=== PATIENT | male | born 1990 | race Caucasian/White ===

== ENCOUNTER 2023-10-07 08:51 | Inpatient (IN) | payer OTHER ==
[2023-10-07] VITALS (12 sets, daily range): BP systolic 88–142; BP diastolic 57–90; PULSE 66–123; RESP 16–19; TEMP 97.6–98.4; O2SAT 91–100
[~2023-10-07] VITALS: Ht 170.2 cm; Wt 87.1 kg
[2023-10-07] MEDS: LORazepam 2 MG/ML VIAL IVP ONE ×4 (09:35→11:07)
[2023-10-07] MEDS: NACL 0.9% 1,000 ML IV ONE (09:38)
[2023-10-07 09:50] LABS: BASOPHILS % (AUTO) 0.2 % (0.0-2.0); HEMATOCRIT 43.5 % (36-52); HEMOGLOBIN 15.3 g/dL (12.0-18.0); LYMPHOCYTES # (AUTO) 0.5 K/uL (2.0-11.5); LYMPHOCYTES % (AUTO) 7.2 % (20.5-51.1); MEAN CORPUSCULAR HEMOGLOBIN 33 pg (27-31); MEAN CORPUSCULAR HGB CONC 35 g/dL (33-37); MEAN CORPUSCULAR VOLUME 94.6 fL (80-94); MONOCYTES # (AUTO) 0.3 K/uL (0.8-1.0); MONOCYTES % (AUTO) 4.3 % (1.7-9.3); NEUTROPHILS # (AUTO) 6.2 K/uL (1.8-7.7); NEUTROPHILS % (AUTO) 88.3 % (42.2-75.2); PLATELET COUNT (AUTO) 151 K/uL (140-450)
[2023-10-07 10:02] LABS: ANION GAP 19.8 (8-16); CALCIUM 8.7 mg/dL (8.5-10.1); CARBON DIOXIDE 20.5 mmol/L (21-32); CREATININE 1.5 mg/dL (0.6-1.3); POTASSIUM 3.3 mmol/L (3.5-5.1)
[2023-10-07 10:11] LABS: ALANINE AMINOTRANSFERASE 96 U/L (12-78); ALBUMIN 4.3 g/dL (3.4-5.0); ALCOHOL, BLOOD < 3 mg/dL (<10); ALKALINE PHOSPHATASE 63 U/L (50-136); ASPARTATE AMINOTRANSFERASE 99 U/L (15-37); BILIRUBIN,DIRECT 0.4 mg/dL (0.0-0.3); TOTAL BILIRUBIN 1.4 mg/dL (0.0-1.0); TOTAL PROTEIN, SERUM 7.3 g/dL (6.4-8.2)
[2023-10-07 11:08] LABS: APPEARANCE,URINE CLEAR (CLEAR); BILIRUBIN,URINE NEGATIVE (NEGATIVE); BLOOD, URINE 1+ (NEGATIVE); COLOR,URINE YELLOW (YELLOW); LEUKOCYTE ESTERASE ,URINE NEGATIVE (NEGATIVE); NITRITE, URINE NEGATIVE (NEGATIVE); PROTEIN,URINE NEGATIVE (NEGATIVE); UGLUCOSE 1+ (NEGATIVE); UROBILINOGEN,URINE 0.2 EU/dL (0.2 - 1)
[2023-10-07 11:17] LABS: AMPHETAMINE, URINE NEGATIVE ng/ml (NEG <=1000); BARBITURATE, URINE NEGATIVE ng/ml (NEG <=200); BENZODIAZEPINE, URINE POSITIVE ng/mL (NEG <=200); CANNABINOID, URINE NEGATIVE ng/mL (NEG <=50); COCAINE, URINE NEGATIVE ng/mL (NEG <=300); OPIATE, URINE NEGATIVE ng/mL (NEG <=2000); PHENCYCLIDINE SCREEN,URINE NEGATIVE ng/mL (NEG <=25)
[2023-10-07 11:27] LABS: BACTERIA,URINE FEW /HPF (None Seen); RBC,URINE 0-5 /HPF (0-5); SQUAMOUS EPITHELIAL CELL,UR 0-3 (FEW) /LPF (0-3 (FEW)); WBC,URINE 0-5 /HPF (0-5)
[2023-10-07] MEDS: MIDAZOLAM 5 MG/5 ML VIAL IV ONE ×3 (11:35→14:16)
[2023-10-07] MEDS: DEXMEDETOMIDINE HCL 400 MCG in NACL 0.9% 96 ML IV SCH (13:00)
[2023-10-07] MEDS ORDERED: MIDAZOLAM 5 MG/5 ML VIAL ONE (13:28)
[2023-10-07] MEDS: DEXMEDETOMIDINE HCL 400 MCG in NACL 0.9% 96 ML IV PRN (14:15)
[2023-10-07] MEDS ORDERED: INTUBATION KIT MC ONE (14:33)
[2023-10-07] MEDS ORDERED: PROPOFOL 1000 MG/100 ML PREMIX 100 ML IV ONE (14:40)
[2023-10-07] MEDS: PROPOFOL 1000 MG/100 ML PREMIX 100 ML IV ONE (14:55)
[2023-10-07] MEDS: ROCURONIUM 50 MG/5 ML VIAL IV ONE (15:01)
[2023-10-07] MEDS: ETOMIDATE 20 MG/10 ML VIAL IVP ONE (15:03)
[2023-10-07] MEDS ORDERED: ALUMINUM HYD/MAG/SIMETHICONE 30 ML UDC PO PRN (17:00)
[2023-10-07] MEDS ORDERED: POTASSIUM CHLORIDE 10 MEQ TABER PO PRN (17:00)
[2023-10-07] MEDS ORDERED: DOCUSATE SODIUM 250 MG GELCAP PO PRN (17:00)
[2023-10-07] MEDS ORDERED: MAGNESIUM OXIDE 400 MG TAB PO PRN (17:00)
[2023-10-07] MEDS ORDERED: ONDANSETRON 4 MG/2 ML VIAL IVP PRN (17:00)
[2023-10-07] MEDS ORDERED: DEXT 5% /NACL 0.9% 1,000 ML IV SCH (17:00)
[2023-10-07] MEDS ORDERED: MAG SULF 2000 MG/WATER PREMIX 50 ML IV PRN (17:00)
[2023-10-07] MEDS ORDERED: bisacodyL 10 MG SUPP RC PRN (17:00)
[2023-10-07] MEDS ORDERED: HYDROcodone/APAP 5/325 MG 1 TAB TAB PO PRN ×2 (17:00)
[2023-10-07] MEDS ORDERED: guaiFENesin DM 200/20 MG-10 ML 10 ML UDC PO PRN (17:00)
[2023-10-07] MEDS ORDERED: SODIUM PHOSPHATE 118 ML ENEM RC PRN (17:00)
[2023-10-07] MEDS ORDERED: ACETAMINOPHEN 325 MG TAB PO PRN (17:00)
[2023-10-07] MEDS ORDERED: MORPHINE SULFATE 2 MG/ML SYR IVP PRN (17:00)
[2023-10-07] MEDS ORDERED: ACETAMINOPHEN 650 MG SUPP RC PRN (17:00)
[2023-10-07] MEDS ORDERED: CLONIDINE HYDROCHLORIDE 0.1 MG TAB PO PRN (17:00)
[2023-10-07] MEDS ORDERED: diphenhydrAMINE 50 MG/ML VIAL IVP PRN (17:00)
[2023-10-07] MEDS ORDERED: ZOLPIDEM 5 MG TAB PO PRN (17:00)
[2023-10-07 17:29] LABS: BLOOD GAS BASE EXCESS -2.5 mmol/L (-2.0-2.0); BLOOD GAS HCO3 20.5 mmol/L (22-26); BLOOD GAS O2 SAT% 99.7 % (92.0-98.5); BLOOD GAS PH 7.438 (7.35-7.45)
[2023-10-07] MEDS: MULTIVITAMIN-12 10 ML, FOLIC ACID 1 MG in DEXT 5% / LACT RING 1,000 ML IV SCH (19:24)
[2023-10-07] MEDS: MAG SULF 2000 MG/WATER PREMIX 50 ML IV SCH (19:27)
[2023-10-07] MEDS: THIAMINE 200 MG/2 ML VIAL IM SCH (19:27)
[2023-10-07] MEDS: PROPOFOL 1000 MG/100 ML PREMIX 100 ML IV PRN (19:48)
[2023-10-07] MEDS: MIDAZOLAM MDV 50 MG in NACL 0.9% 40 ML IV PRN (19:53)
[2023-10-07] MEDS: POTASSIUM CHLORIDE 20% 40 MEQ/15 ML UDC GT PRN (20:30)
[2023-10-07 21:55] LABS: BILIRUBIN,URINE 1+ (NEGATIVE); BLOOD, URINE 3+ (NEGATIVE); COLOR,URINE YELLOW (YELLOW); LEUKOCYTE ESTERASE ,URINE NEGATIVE (NEGATIVE); NITRITE, URINE NEGATIVE (NEGATIVE); PROTEIN,URINE 1+ (NEGATIVE); UGLUCOSE NEGATIVE (NEGATIVE); UROBILINOGEN,URINE 0.2 EU/dL (0.2 - 1)
[2023-10-07 21:58] LABS: APPEARANCE,URINE SLIGHTLY CLOUDY (CLEAR)
[2023-10-07 22:00] LABS: RBC,URINE 11-20 (MOD) /HPF (0-5)
[2023-10-07 22:02] LABS: BACTERIA,URINE 2+ /HPF (None Seen); ICTOTEST POSITIVE (NEGATIVE); MUCUS,URINE None Seen /LPF (None Seen); SQUAMOUS EPITHELIAL CELL,UR 0-3 (FEW) /LPF (0-3 (FEW)); WBC,URINE 0-5 /HPF (0-5)
[2023-10-08] VITALS (31 sets, daily range): BP systolic 90–152; BP diastolic 53–97; PULSE 63–112; RESP 17–21; TEMP 97.7–98.6; O2SAT 95–100
[2023-10-08] MEDS: LACTATED RINGERS 1,000 ML IV SCH (00:30)
[2023-10-08] MEDS: DIAZEPAM PFS 10 MG/2 ML SYR IVP PRN (06:03)
[2023-10-08] MEDS: ASPIRIN 325 MG TAB NG ONE (06:03)
[2023-10-08 06:20] LABS: BASOPHILS % (AUTO) 0.4 % (0.0-2.0); EOSINOPHILS # (AUTO) 0.1 K/uL (0-0.4); EOSINOPHILS % (AUTO) 0.8 % (0.0-4.0); HEMATOCRIT 45.1 % (36-52); HEMOGLOBIN 15.3 g/dL (12.0-18.0); LYMPHOCYTES # (AUTO) 2.8 K/uL (2.0-11.5); LYMPHOCYTES % (AUTO) 27.4 % (20.5-51.1); MEAN CORPUSCULAR HEMOGLOBIN 33 pg (27-31); MEAN CORPUSCULAR HGB CONC 34 g/dL (33-37); MEAN CORPUSCULAR VOLUME 97.7 fL (80-94); MONOCYTES # (AUTO) 0.9 K/uL (0.8-1.0); MONOCYTES % (AUTO) 8.3 % (1.7-9.3); NEUTROPHILS # (AUTO) 6.5 K/uL (1.8-7.7); NEUTROPHILS % (AUTO) 63.1 % (42.2-75.2); PLATELET COUNT (AUTO) 164 K/uL (140-450); RED BLOOD CELL COUNT(AUTO) 4.62 MIL/uL (4.20-6.10); RED CELL DISTRIBUTION WIDTH 15.3 % (11.6-13.7); WHITE BLOOD COUNT (AUTO) 10.3 K/uL (4.8-10.8)
[2023-10-08 06:33] LABS: ALBUMIN 4.4 g/dL (3.4-5.0); ANION GAP 16.2 (8-16); CALCIUM 8.5 mg/dL (8.5-10.1); CARBON DIOXIDE 23.3 mmol/L (21-32); CREATININE 1.9 mg/dL (0.6-1.3); MAGNESIUM 3.3 mg/dL (1.8-2.4); POTASSIUM 3.5 mmol/L (3.5-5.1); TOTAL BILIRUBIN 1.6 mg/dL (0.0-1.0); TOTAL PROTEIN, SERUM 7.6 g/dL (6.4-8.2)
[2023-10-08] MEDS: ENOXAPARIN 40 MG/0.4 ML SYR SUBQ SCH (09:58)
[2023-10-08] MEDS: THIAMINE 100 MG TAB NG SCH (09:59)
[2023-10-08] MEDS: PANTOPRAZOLE 40 MG INJ VIAL IVP SCH (09:59)
[2023-10-08] MEDS: FOLIC ACID 1 MG TAB NG SCH (09:59)
[2023-10-08] MEDS: MAG SULF 2000 MG/WATER PREMIX 50 ML IV SCH (14:45)
[2023-10-08] MEDS: THIAMINE 200 MG/2 ML VIAL IM SCH (16:57)
[2023-10-08] MEDS: MULTIVITAMIN-12 10 ML, FOLIC ACID 1 MG in DEXTROSE 5% 1,000 ML IV ONE (16:57)
[2023-10-09] VITALS (34 sets, daily range): BP systolic 87–149; BP diastolic 51–107; PULSE 60–106; RESP 12–26; TEMP 96.4–98.5; O2SAT 90–100
[2023-10-09] MEDS: MIDAZOLAM MDV 50 MG/10 ML VIAL IV ONE (06:19)
[2023-10-09 06:24] LABS: ANION GAP 11.9 (8-16); CARBON DIOXIDE 22.9 mmol/L (21-32)
[2023-10-09 06:25] LABS: CALCIUM 7.9 mg/dL (8.5-10.1); HEMOGLOBIN 13.2 g/dL (12.0-18.0); RED BLOOD CELL COUNT(AUTO) 3.95 MIL/uL (4.20-6.10); WHITE BLOOD COUNT (AUTO) 6.4 K/uL (4.8-10.8)
[2023-10-09 06:26] LABS: LYMPHOCYTES % (AUTO) 16.9 % (20.5-51.1); MEAN CORPUSCULAR HEMOGLOBIN 33 pg (27-31); MEAN CORPUSCULAR HGB CONC 35 g/dL (33-37); MEAN CORPUSCULAR VOLUME 96.2 fL (80-94); NEUTROPHILS % (AUTO) 74.3 % (42.2-75.2); PLATELET COUNT (AUTO) 115 K/uL (140-450); POTASSIUM 2.8 mmol/L (3.5-5.1); RED CELL DISTRIBUTION WIDTH 15.2 % (11.6-13.7)
[2023-10-09 06:27] LABS: BASOPHILS % (AUTO) 0.5 % (0.0-2.0); EOSINOPHILS # (AUTO) 0.1 K/uL (0-0.4); LYMPHOCYTES # (AUTO) 1.1 K/uL (2.0-11.5); MONOCYTES # (AUTO) 0.5 K/uL (0.8-1.0); MONOCYTES % (AUTO) 7.3 % (1.7-9.3); NEUTROPHILS # (AUTO) 4.8 K/uL (1.8-7.7)
[2023-10-09] MEDS: POTASSIUM CHLORIDE 20% 40 MEQ/15 ML UDC GT ONE ×2 (11:34→15:29)
[2023-10-09] MEDS: chlordiazePOXIDE 25 MG CAP PO SCH (13:03)
[2023-10-09] MEDS: DOCUSATE 100 MG/10 ML UDC GT PRN (14:50)
[2023-10-09] MEDS: MULTIVITAMIN-12 10 ML, FOLIC ACID 1 MG in DEXTROSE 5% 1,000 ML IV ONE (14:51)
[2023-10-09] MEDS ORDERED: DIAZEPAM PFS 10 MG/2 ML SYR IVP PRN (19:20)
[2023-10-09] MEDS: LORazepam 2 MG/ML VIAL IVP PRN (20:01)
[2023-10-09] MEDS: LORazepam 2 MG/ML VIAL ONE (20:06)
[2023-10-09] MEDS: ALBUTEROL 0.083% 2.5 MG/3 ML NEBU INH PRN (20:14)
[2023-10-09] MEDS: IPRATROPIUM 0.02% 0.5 MG/2.5 ML NEBU INH PRN (20:15)
[2023-10-09] MEDS: PHENobarbital 130 MG/ML VIAL IV ONE (21:00)
[2023-10-10] VITALS: BP 156/95; PULSE 67; PULSE 85; RESP 26; O2SAT 92
[2023-10-10 01:00] VITALS: BP 151/90; PULSE 66; RESP 20; TEMP 97.2; O2SAT 92
== END 2023-10-10 01:10 | disposition left against medical advice (07) | DRG 53 ==
LOC: MED 08:51 → MIC 14:06
PROVIDERS: ADMIT Hospitalist; ATTEND Hospitalist
PROC: 0BH17EZ Insertion of Endotracheal Airway into Trachea, Via Natural or Artificial Opening (ICD-10-PCS; principal; 2023-10-07)
PROC: 5A1945Z Respiratory Ventilation, 24-96 Consecutive Hours (ICD-10-PCS; 2023-10-07)
DX: R56.9 Unspecified convulsions (principal); J96.01 Acute respiratory failure with hypoxia; G92.8 Other toxic encephalopathy; N17.9 Acute kidney failure, unspecified; Z53.29 Procedure and treatment not carried out because of patient's decision for other reasons; F10.239 Alcohol dependence with withdrawal, unspecified; F41.9 Anxiety disorder, unspecified; F32.A Depression, unspecified; F17.200 Nicotine dependence, unspecified, uncomplicated; R41.0 Disorientation, unspecified; Y90.9 Presence of alcohol in blood, level not specified
CPT/HCPCS: 36415; 36600; 70450; 71045; 80048; 80053; 80076; 80305; 81001; 82803; 83735; 84484; 85025; 87070; 87081; 87086; 87205; 89220; 93005; 94002; 94003; 94640; 96361; 96374; 96375; 99291; A9153; C9113; G0482; J1650; J2060; J2250; J2560; J2704; J3360; J3411; J3475; J3490; J7060; J7613; J7644; Q0092

== ENCOUNTER 2023-11-13 00:33 | Emergency (ER) | payer MEDICAID, OTHER ==
[~2023-11-13] VITALS: Ht 167.6 cm; Wt 81.6 kg
[2023-11-13 01:01] LABS: BASOPHILS # (AUTO) 0.1 K/uL (0.00-0.22); EOSINOPHILS % (AUTO) 0.6 % (0.0-4.0); HEMATOCRIT 42.8 % (36-52); HEMOGLOBIN 14.9 g/dL (12.0-18.0); LYMPHOCYTES # (AUTO) 1.3 K/uL (2.0-11.5); LYMPHOCYTES % (AUTO) 23.4 % (20.5-51.1); MEAN CORPUSCULAR HEMOGLOBIN 34 pg (27-31); MEAN CORPUSCULAR HGB CONC 35 g/dL (33-37); MEAN CORPUSCULAR VOLUME 97.9 fL (80-94); MONOCYTES # (AUTO) 0.4 K/uL (0.8-1.0); MONOCYTES % (AUTO) 6.8 % (1.7-9.3); NEUTROPHILS # (AUTO) 3.8 K/uL (1.8-7.7); NEUTROPHILS % (AUTO) 68.2 % (42.2-75.2); PLATELET COUNT (AUTO) 174 K/uL (140-450); RED BLOOD CELL COUNT(AUTO) 4.37 MIL/uL (4.20-6.10); RED CELL DISTRIBUTION WIDTH 14.7 % (11.6-13.7); WHITE BLOOD COUNT (AUTO) 5.6 K/uL (4.8-10.8)
[2023-11-13 01:10] VITALS: BP 133/85; PULSE 95; RESP 14; TEMP 99.7; O2SAT 98
[2023-11-13 01:11] VITALS: BP 142/89; PULSE 74; RESP 11; O2SAT 96
[2023-11-13 01:13] LABS: ANION GAP 17.4 (8-16); CALCIUM 9.8 mg/dL (8.5-10.1); CARBON DIOXIDE 25.1 mmol/L (21-32); POTASSIUM 3.5 mmol/L (3.5-5.1)
[2023-11-13] MEDS: LORazepam 2 MG/ML VIAL IVP ONE (01:15)
[2023-11-13 01:18] LABS: ALANINE AMINOTRANSFERASE 108 U/L (12-78); ALBUMIN 4.8 g/dL (3.4-5.0); ALCOHOL, BLOOD < 3 mg/dL (<10); ALKALINE PHOSPHATASE 67 U/L (50-136); ASPARTATE AMINOTRANSFERASE 124 U/L (15-37); BILIRUBIN,DIRECT 0.5 mg/dL (0.0-0.3); TOTAL BILIRUBIN 2.3 mg/dL (0.0-1.0); TOTAL PROTEIN, SERUM 8.8 g/dL (6.4-8.2)
[2023-11-13] MEDS: NACL 0.9% 1,000 ML IV ONE (02:06)
[2023-11-13] MEDS ORDERED: CHLO-757 PO (02:44)
[2023-11-13] MEDS: ZOLPIDEM 5 MG TAB PO ONE (03:25)
== END 2023-11-13 03:41 | disposition home or self-care (01) ==
LOC: MED 00:33
DX: K70.10 Alcoholic hepatitis without ascites (principal); F10.239 Alcohol dependence with withdrawal, unspecified; F10.229 Alcohol dependence with intoxication, unspecified; J45.909 Unspecified asthma, uncomplicated; Z79.899 Other long term (current) drug therapy; Y90.0 Blood alcohol level of less than 20 mg/100 ml
CPT/HCPCS: 36415; 80048; 80076; 85025; 96361; 96374; 99283; G0482; J2060; J7030